=== PATIENT | male | born 1965 | race Hispanic/Latino ===

== ENCOUNTER 2018-08-21 08:52 | Day surgery (SDC) | payer OTHER, SELFPAY ==
[2018-08-21] VITALS (9 sets, daily range): BP systolic 112–133; BP diastolic 71–87; PULSE 61–65; RESP 14–17; TEMP 36.2–36.6; O2SAT 92–100; BMI 32.8
--- NOTE | 2018-08-21 | PATH_ITS ---
[facility] Accession Number: [id number] . 01 Material submitted: . PART A: esophagus - DISTAL ESOPHAGUS PART B: esophagus - PROXIMAL ESOPHAGUS PART C: esophagus - DISTAL ESOPHAGUS . 01 Clinical history: . A: R/O PHILLIPS'S B-C: R/O EOE . 02 Diagnosis: A. Distal Esophagus, Biopsy: Squamocolumnar junctional mucosa with no diagnostic abnormality. Negative for intestinal metaplasia. Negative for dysplasia and malignancy. . B-C. Proximal Esophagus, Distal Esophagus, Biopsies: Squamous epithelium with no diagnostic abnormality. Intraepithelial eosinophils are not increased. Negative for dysplasia and malignancy. [facility]/08/22/2018 . 02 Electronically signed: . Nakita Carr MD, Pathologist NPI- [id number] . 01 Gross description: . Part A: DISTAL ESOPHAGUS: Received in formalin are 2 fragment(s) of greenberg, soft tissue measuring 0.1 x 0.1 x 0.1 cm to 0.2 x 0.2 x 0.1 cm which is entirely submitted and submitted entirely in 1 cassette(s) Part B: PROXIMAL ESOPHAGUS: Received in formalin are 3 fragment(s) of greenberg, soft tissue measuring 0.1 x 0.1 x 0.1 cm to 0.2 x 0.2 x 0.1 cm which is entirely submitted and submitted entirely in 1 cassette(s) Part C: DISTAL ESOPHAGUS: Received in formalin are 3 fragment(s) of greenberg, soft tissue measuring 0.1 x 0.1 x 0.1 cm to 0.2 x 0.1 x 0.1 cm which is entirely submitted and submitted entirely in 1 cassette(s) /[facility] /DM . 02 Pathologist provided ICD-10: R10.13 . 02 CPT . 513423, 578321, [id number] Performed at: 01 [facility] [address] [id number] MD Cal Davis MD Phone: [phone] Performed at: 02 [facility] [id number] [place], [place] [id number] MD Nakita Carr MD Phone: [phone]
[2018-08-21] MEDS: SODIUM CHLORIDE 0.9% 1,000 ML 200 ML IV (09:30)
--- NOTE | 2018-08-21 09:56 | PM.HP.1 ---
History of Present Illness Chief complaint: [id number] Patient History Social History household members: spouse Smoking Status: Former smoker Family & Social History Social History: household members spouse Tobacco & Substance use: Smoking Status Former smoker Meds Home Medications Medication Instructions Recorded Confirmed Type lisinopril 40 mg tablet 40 mg PO DAILY 07/03/18 08/21/18 History omeprazole 20 mg capsule,delayed 20 mg PO DAILY 07/03/18 08/21/18 History release Allergies Allergy/AdvReac Type Severity Reaction Status Date / Time amoxicillin Allergy Hives and Verified 07/03/18 09:40 swelling clarithromycin Allergy Hives and Verified 07/03/18 09:40 swelling Review of Systems Review of Systems All systems reviewed & are unremarkable except as noted in HPI and below Exam Vital Signs (past 8 hours): - 08/21/18 09:07 Temperature 97.5 F L Pulse Rate 62 Respiratory Rate 16 Blood Pressure 133/87 Pulse Oximetry 100 Oxygen Delivery Method Room Air Narrative Exam Narrative: Awake alert oriented x3, pupils reactive, lungs clear, heart regular rate rhythm, abdomen nondistended, no lower extremity edema Assessment & Plan Assessment & Plan narrative: Dysphagia and GERD, EGD
[2018-08-21] MEDS: MIDAZOLAM 5 MG/5 ML VIAL IV (10:35)
[2018-08-21] MEDS: fentaNYL 250 MCG/5 ML INJ IV (10:37)
--- NOTE | 2018-08-21 10:39 | PM.OP.ENDO ---
Operative Date/Time/Diagnoses Date of procedure: 08/21/18 Procedure & Clinicians Study performed: EGD with cold biopsy Moderate conscious sedation was administered by the endoscopy nurse and supervised by the endoscopist. The following parameters were monitored: Oxygen saturation, heart rate, blood pressure, and response to care. Sedation: 5 mg midazolam, 100 micro g fentanyl Indications: Esophageal dysphagia, GERD Procedure Notes Procedure in detail: Prior to the procedure, history and physical was performed, and patient medications and allergies were reviewed. Preprocedure nursing history and assessment was reviewed. Patient identification and proposed procedure were verified by the physician and nurse in the procedure room. The physical status of the patient was reassessed after the procedure. After informed consent was obtained including risks, benefits, and alternatives, the scope was passed under direct vision. Throughout the procedure, the patient's blood pressure, pulse, and oxygen saturations were monitored continuously. The upper endoscope was introduced through the mouth and advanced to the 2nd portion of the duodenum. Retroflexion was performed in the stomach. The patient tolerated the procedure well. Two isolated 3-4 mm islands of salmon colored mucosa though located in the distal esophagus just above the Z-line. Biopsies were taken to rule out White's esophagus. The squamocolumnar junction was otherwise regular and located at 42 cm from the incisors. The remainder of the esophagus was normal appearing. Biopsies were taken from the distal and proximal esophagus to rule out eosinophilic esophagitis A 2 cm sliding hiatal hernia was noted. The stomach was otherwise normal appearing. The entire examined duodenum was normal appearing. Impression: Biopsies taken from the distal and proximal esophagus to rule out EOE Small islands of salmon-colored mucosa in the distal esophagus suspicious for White's esophagus. Biopsied Small sliding hiatal hernia Normal appearing stomach and duodenum Sedation minutes: 13 Complications: other (EBL minimal. No complications) Plan for aftercare: Follow-up biopsy results Return to GI clinic as previously scheduled or recommended Follow anti-reflux diet and lifestyle Resume home medications Discharge home with escort
== END 2018-08-21 11:13 | disposition home or self-care (01) ==
PROVIDERS: PCP Nurse Practitioner Family; Visit Provider Internal Medicine
PROC: 0DJ08ZZ Inspection of Upper Intestinal Tract, Via Natural or Artificial Opening Endoscopic (ICD-10-PCS; CPT 43235; principal; 2018-08-21 10:00)
DX: R13.10 Dysphagia, unspecified (principal); K21.9 Gastro-esophageal reflux disease without esophagitis; K44.9 Diaphragmatic hernia without obstruction or gangrene; Z87.891 Personal history of nicotine dependence
CPT/HCPCS: 43239; 88305; J2250; J3010

== ENCOUNTER → 2023-02-05 15:11 | Outpatient (CLI) | payer OTHER, SELFPAY ==
--- NOTE | 2023-02-05 | DI.CT.S_ITS ---
PROCEDURE: CT SINUS SCREEN WO CON INDICATIONS: CHRONIC PANSINUSITIS TECHNIQUE: Noncontrast 3.0 mm axial images acquired from the frontal sinuses to the mid-sella, with coronal and sagittal reformats. For radiation dose reduction, the following was used: automated exposure control, adjustment of mA and/or kV according to patient size. COMPARISON: None. FINDINGS: Image quality: There is artifact associated with the metallic hardware. Artifact from the metallic hardware is reduced by metal reconstruction algorithm. Maxillary Sinuses: There is at least moderate mucosal thickening within the inferior left maxillary sinus, with frothy material seen. Mild mucosal thickening is seen within the inferior right maxillary sinus. The superior medial salcedo of the maxillary sinuses are demineralized. Ethmoid Air Cells: There is at least moderate mucosal thickening within the ethmoid air cells. There is demineralization of several ethmoid air cell septations. Sphenoid Sinuses: No bony remodeling or destruction. Minimal mucosal thickening can be seen anteriorly. Within the posterior left sphenoid sinus, there is a potential mucous retention cyst. Frontal Sinuses: No bony remodeling or destruction. There is moderate mucosal thickening seen inferior medially on the right, with mild mucosal thickening seen inferior medially on the left. Ostiomeatal Complexes: Ostiomeatal complexes are constitutionally narrowed and are further nearly completely occluded by soft tissue thickening. The ostiomeatal complexes are demineralized. Miscellaneous: Visualized intra-orbital contents are normal. No jacquelyn bullosa or paradoxical turbinate curvature. There is moderate leftward nasal septal deviation, with a leftward directed bony nasal septal spur. IMPRESSION: Multifocal paranasal sinus disease can be seen, which is overall most prominent within the left maxillary sinus. The ostiomeatal complexes are constitutionally narrowed and are nearly completely occluded by soft tissue thickening. Areas of bony demineralization are seen, which are consistent with chronic sinusitis. There is moderate leftward nasal septal deviation, with a leftward directed bony nasal septal spur. Dictated by: Kevyn Zhao M.D. on 02/05/2023 at 16:00 Approved by: Kevyn Zhao M.D. on 02/05/2023 at 16:03
== END ==
PROVIDERS: PCP Physician Assistant Medical; Referring Provider Physician Assistant; Visit Provider Physician Assistant
DX: J32.4 Chronic pansinusitis (principal); J34.2 Deviated nasal septum
CPT/HCPCS: 70486

== ENCOUNTER → 2023-04-19 14:25 | Outpatient (CLI) | payer OTHER, SELFPAY ==
--- NOTE | 2023-04-19 | DI.CT.S_ITS ---
PROCEDURE: CT SINUS SCREEN WO CON INDICATIONS: CHROINIC PANSINUSITIS TECHNIQUE: Noncontrast 3.0 mm axial images acquired from the frontal sinuses to the mid-sella, with coronal and sagittal reformats. For radiation dose reduction, the following was used: automated exposure control, adjustment of mA and/or kV according to patient size. COMPARISON: [facility], CT, CT SINUS SCREEN WO CON, 02/05/2023, 15:21. FINDINGS: Image quality: Excellent. Maxillary Sinuses: At least moderate mucosal thickening can be seen within the left maxillary sinus. There is milder mucosal thickening seen within the right maxillary sinus. There is demineralization seen of the superior medial salcedo of the maxillary sinuses. Ethmoid Air Cells: There is moderate mucosal thickening seen within the ethmoid air cells. There is demineralization seen of ethmoid air cell septations. Sphenoid Sinuses: No bony remodeling or destruction. Kzrq-ga-excskqve mucosal thickening can be seen on the left. Frontal Sinuses: No bony remodeling or destruction. Mild mucosal thickening can be seen involving the inferior medial frontal sinuses. Ostiomeatal Complexes: The ostiomeatal complexes are highly constitutionally narrowed and are further narrowed by soft tissue thickening. The left ostiomeatal complex is nearly completely occluded. There is a right-sided Grisel cell seen. The ostiomeatal complexes are demineralized. Miscellaneous: Visualized intra-orbital contents are normal. There is a right-sided jacquelyn bullosa is seen, with partial opacification. There is mild leftward nasal septal deviation, with a leftward directed bony nasal septal spur, as on series 4, image 27. Abnormal soft tissue can be seen within the left nasopharynx posteriorly. IMPRESSION: There is abnormal soft tissue seen within the left nasopharynx posteriorly. Polyp disease is suspected, although please consider a true mass. Widespread paranasal sinus disease is seen, which is similar in severity to the 02/05/2023 examination. The ostiomeatal complexes are highly constitutionally narrowed and the left ostiomeatal complex is nearly completely occluded by soft tissue thickening. Areas of bony demineralization are seen, which are consistent with chronic sinusitis. Dictated by: Kevyn Zhao M.D. on 04/19/2023 at 15:08 Approved by: Kevyn Zhao M.D. on 04/19/2023 at 15:11
== END ==
LOC: CT 14:25
PROVIDERS: PCP Physician Assistant Medical; Referring Provider Otolaryngology; Visit Provider Otolaryngology
DX: J32.4 Chronic pansinusitis (principal); M79.89 Other specified soft tissue disorders
CPT/HCPCS: 70486

== ENCOUNTER 2023-08-02 13:47 | Day surgery (SDC) | payer OTHER, SELFPAY ==
[2023-07-26 10:33] VITALS: BMI 35.9
[2023-08-02] VITALS (7 sets, daily range): BP systolic 124–152; BP diastolic 72–77; PULSE 67–97; RESP 12–17; TEMP 36.7–37.7; O2SAT 94–97; BMI 35.9
--- NOTE | 2023-08-02 | PATH_ITS ---
[facility] Accession Number: [id number] No. of containers..01 Tissue . 01 Material submitted: . NASAL - LEFT NASAL POLYP . 01 Diagnosis: LEFT NASAL POLYP, EXCISION: Inflammatory sinonasal polyp. Negative for malignancy. MRV 08/06/2023 1403 Local . 01 Electronically signed: . Nakita Carr MD, Pathologist NPI- [id number] . 01 Gross description: . The specimen is received in formalin, labeled with the patient's name, , and left nasal polyp, consists of two fragments of greenberg-brown, gelatinous, polypoid soft tissue admixed with blood clots aggregating to 2.4 x 2.4 x 0.6 cm. The tissue is filtered into a mesh bags and entirely submitted in cassettes A1-A2. ([id number]) /MRV 08/03/2023 1823 Local . 01 Pathologist provided ICD-10: J33.9 . 01 CPT . 274963 Specimen Comment: A courtesy copy of this report has been sent to [phone] Performed at: 01 [facility] [address] [place] [address], [place], [place] [id number] MD Cal Davis MD Phone: [phone]
[2023-08-02] MEDS: ACETAMINOPHEN 325 MG TABLET 975 MG PO (15:13)
[2023-08-02] MEDS: OXYMETAZOLINE NASAL SPRAY 30 ML 2 SPRAYS NASAL ×2 (15:13→16:22)
[2023-08-02] MEDS: LACTATED RINGERS 1,000 ML 42 ML IV ×2 (15:15→16:56)
--- NOTE | 2023-08-02 15:43 | PM.PREOP ---
Pre-operative Note Interval Note History & Physical reviewed/Exam performed by Physician: Yes Changes to H&P: No
--- NOTE | 2023-08-02 15:43 | PM.OP.1 ---
Operative Date/Time/Diagnoses Date of procedure: 08/02/23 Time of procedure: 18:15 Pre-op diagnosis: CRS with ENGRAVER FLATWARE, nasal airway obstruction, septal deviation, inferior turbinate hypertrophy, ANDRE Post-op diagnosis: same Procedure & Clinicians Procedure: 1. Bilateral endoscopic maxillary antrostomy 2. Bilateral endoscopic total ethmoidectomies 3. Septoplasty 4. Bilateral inferior turbinate reduction via intramural cautery Same procedure as scheduled: Yes Indications: 57yo male with the above dx incompletely managed with medical therapy presents for the above procedures. Following discussion of the material risks, benefits, complications and alternatives, pt elected to proceed. Surgeon: Justin Frank Click Yes if Unassisted: Yes Anesthesia Type: General and Local Operative Notes Findings: 3+ right septal deviation, Long sharp spur low left extending from ant to posterior, LEFT flap tear only, RIGHT intact. kwqj-fgwpdac-tior-right inferior turbinate hypertrophy. Polyps eniv-pyquwpu-bxbw-right including into the left choana originating from LEFT SER. Specimen(s): other (LEFT nasal cavity polyp) Estimated Blood Loss (mL): 85 Procedure in detail: Following identification and confirmation of consent as well as preoperative Afrin nasal spray, the patient was brought to the operating room suite and placed in the supine position. General endotracheal anesthesia was administered. I infiltrated the septum widely bilaterally with 1% lidocaine 1 100,000 epinephrine followed by temporary packing with cotton with Afrin and 4% lidocaine. Following sterile prep and drape, the packing was removed and I performed a right rosario-transfixion incision, elevated the right mucoperichondrial and mucoperiosteal flap. I disarticulated near the bony/cartilaginous junction and elevated the left mucoperiosteal flap. Deviated portions of the perpendicular plate of the ethmoid and vomer were resected. The residual quadrilateral cartilage was further straightened by trimming it inferiorly as well as reducing the maxillary crest. A 2 mm strip of cartilage paralleling the residual 1 cm dorsal and caudal strut was resected to further straighten the quadrilateral cartilage. The hemitransfixion incision was closed with interrupted 5 0 chromic followed by a running 4 0 plain gut mattress suture to reapproximate the septal flaps. The head of each inferior turbinate had been previously infiltrated with additional local anesthetic and a 25 gauge spinal needle was used to impale the length of the turbinate, with cautery on a setting of 15 activated on slow withdrawal over 2 passes each side. The turbinates were then outfractured. Under endoscopic guidance the posterior and anterior superior insertion of each middle turbinate was then infiltrated with additional local anesthetic via spinal needle. Beginning on the left side, the middle turbinate was slightly medialized, and cotton pledgets with 1 1000 epinephrine were placed temporarily in the middle meatus for up to 10 full minutes and used intermittently throughout the case for hemostasis as needed. The uncinate process was identified with uncinectomy performed via the backbiting forceps and the microdebrider. The natural os of the maxillary sinus was identified and enlarged posteriorly and inferiorly with forceps and the microdebrider. Anterior ethmoidectomy was performed by removing the ethmoid bulla with the microdebrider. The basal lamella of the middle turbinate was penetrated infero-medially and the posterior ethmoids were entered, with partitions and polyps removed without performing a sphenoidotomy or approaching the frontal recess. This procedure was repeated on the right side with similar findings, but polyps less severe. At case completion, 20/1000th of an inch silastic splints were placed bilaterally, sutured anteriorly with a single 4 0 nylon. The procedure completed, sponge and needle counts were correct and the patient was extubated in the operating room and taken to recovery room in stable condition without known complication. Complications: none Post-operative Condition: stable Disposition: same day surgery Plan for aftercare: Nasal saline every hour while awake, begin irrigations t.i.d. tomorrow. Polysporin to the nostrils at all times, Tylenol alternating with Advil for pain control, oxycodone for breakthrough pain. Elevate head of bed, no nose blowing, no straining for 2 weeks. Ice directly under the nose on the upper lip has tolerated 24-48 hours at a minimum. Follow-up in 1 week for nasal splint removal.
--- NOTE | 2023-08-02 15:54 | SUR.OPER ---
Supine on padded OR bed, head on gel donut, arms padded and tucked at sides, legs uncrossed, safety belt at thigh, tape over blanket over lower legs .
[2023-08-02] MEDS: BACITRACIN 28 GM OINT 1 APPLIC TOP (16:21)
[2023-08-02] MEDS: LIDOCAINE 1% W/EPI 20 ML INJ (16:22)
[2023-08-02] MEDS: LIDOCAINE 4% SOLN 50 ML 20 ML TOP (16:23)
[2023-08-02] MEDS: EPINEPHrine 1 MG/ML 6 MG IRR (16:24)
[2023-08-02] MEDS: ONDANSETRON 4 MG/2 ML INJ IV (18:33)
[2023-08-02] MEDS: hydrOXYzine 50 MG/ML INJ IM (18:35)
[2023-08-02] MEDS: OXYCODONE IR 5 MG TABLET PO (19:01)
== END 2023-08-02 19:12 | disposition home or self-care (01) ==
PROVIDERS: PCP Physician Assistant Medical; Referring Provider Otolaryngology; Visit Provider Otolaryngology
PROC: 09QM4ZZ Repair Nasal Septum, Percutaneous Endoscopic Approach (ICD-10-PCS; CPT 30520; principal; 2023-08-02 15:15)
DX: J34.2 Deviated nasal septum (principal); J34.89 Other specified disorders of nose and nasal sinuses; J32.4 Chronic pansinusitis; G47.33 Obstructive sleep apnea (adult) (pediatric)
CPT/HCPCS: 31255; 30520; 30802; 31256; J0171; J2250; J2405; J2704; J3010; J3410